=== PATIENT | female | born 1990 | race Caucasian/White ===

== ENCOUNTER 2017-07-28 12:06 | Emergency (ER) | payer SELFPAY ==
[2017-07-28 12:12] VITALS: BP 122/69; BMI 35.5
--- NOTE | 2017-07-28 12:58 | DR.GENAD ---
HPI - PCP Primary Care Physician: NFD - Complaint/Symptoms Chief Complaint Doctors Comments: Patient states that she was incarcirated for three months and had a demise. This occured three weeks ago and she had not seen any physician since being released. She did have a physician while incarcerated to examine and informed her that the baby was . She also reports that she had a left breast mass and was treated with medication and an incision was done. Now the left breast is inverted. She is complaining of lack of appropriate care. Chief Complaint:: PT C/O LEFT BREAST ISSUES FOR THE PAST FEW YEARS AND SHE HAS BEEN IN AND OUT OF GROUP HOME AND THAT HER LEFT BREAST IS RED AND INFLAMED AND INVERTED AND DRAINING".. Self Treatment fo Chief Complaint: 2 YEARS AGO PT HAD AN US DONE, AND PT C/O LEFT AXILLA WITH A KNOT . - Source History Provided: Patient - Mode of Arrival Mode of Arrival: Ambulatory - Timing Onset of Chief Complaint: 07/28/17 PMH - PMH Past Medical History: No Past Surgical History: Yes Surgical History: Ortho Surgery Past Surgical History Comment: FX RIGHT COLLAR BONE WITH SCREWS.. - Family History History of Family Medical Conditions: Yes Family Medical History Comment: FIBROIDS TO BREASTS - Social History Does patient currently use any type of tobacco product: Yes Have you used tobacco products in the last 12 months: Yes Type of Tobacco Use: Cigarettes How many years tobacco product used: 10 Does any household member use tobacco: No Alcohol Use: None Do you use any recreational Drugs:: No Lives With: Family Lives Where: Home - infectious screening In the last 2 months have you had wt loss of >10#?: NO Have you had fever, night sweats or hemotysis?: No Have you traveled outside the country in the last 6 months?: No Isolation: Standard ROS - Review of Systems Eyes: No Symptoms Reported ENTM: No Symptoms Reported Respiratoy: No Symptoms Reported Cardiovascular: No Symptoms Reported Gastrointestinal/Abdominal: No Symptoms Reported Genitourinary: No Symptoms Reported Neurological: No Symptoms Reported Musculoskeletal: No Symptoms Reported Integumentary: No Symptoms Reported, Other (s/p mastitis probably treated with antibiotics and I&D) Hematologic/Lymphatic: No Symptoms Reported Endocrine: No Symptoms Reported Psychiatric: No Symptoms Reported All Other Systems: Reviewed and Negative PE - Vital Signs Vitals: Temperature 97.8 F Pulse Rate 104 Respiratory Rate 18 Blood Pressure 122/69 O2 Sat by Pulse Oximetry 100 - General General Appearance: Alert, In No Apparent Distress - Head Head Exam: Normal Inspection, Atraumatic - Eyes Eye exam: Normal Appearance, PERRL, EOMI - ENT ENT Exam: Normal Exam External Ear Exam: Normal External Inspection Nose Exam: Normal Nose Exam Mouth Exam: Normal Inspection Throat Exam: Normal Inspection - Neck Neck Exam: Normal Inspection - Respiratory Respiratory Exam: Normal Lung Sounds Bilat, Other (left areola s/p I&D and w/o erythema or tenderness, scar formation) - Extremities Extremities Exam: Normal Inspection, Other (c/o demise of three weeks duration) - Back Back Exam: Normal Inspection - Neurologic Neurological Exam: Alert, Oriented X3, CN II-XII Intact - Skin Skin Exam: Warm, Dry, Intact - Diagnosis Discharge Problem: History of demise, not currently Periductal mastitis Qualifiers: Laterality: left Qualified Code(s): 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
== END 2017-07-28 13:18 | disposition home or self-care (01) ==
LOC: ER 12:18
DX: N60.42 Mammary duct ectasia of left breast (principal)
CPT/HCPCS: 99281; 99282

== ENCOUNTER 2021-01-03 06:30 | Inpatient (IN) ==
[2021-01-03] MEDS ORDERED: PITOCIN ONE ×2 (07:17→17:15)
[2021-01-03] MEDS ORDERED: D5 1/2 NS 1L W PITOCIN 20 UNITS/L 20 UNITS/1,000 ML BAG IV ONE ×2 (07:17→17:11)
[2021-01-03] MEDS ORDERED: D5LR 1L W PITOCIN 10 UNITS/L 10 UNITS/1,000 ML BAG IV ONE (07:17)
[2021-01-03] MEDS ORDERED: BETADINE SOLN ONE (07:17)
[2021-01-03] MEDS ORDERED: D5 1/2 NS 1000 ML 1,000 ML IV ONE ×2 (07:17→08:26)
[2021-01-03] MEDS ORDERED: ANCEF 1 GRAM IV PREMIX* 1 G/50 ML BAG IV ONE ×2 (07:18→13:54)
[2021-01-03] MEDS ORDERED: D5LR 1L W PITOCIN 10 UNITS/L 10 UNITS/1,000 ML BAG IV PRN (07:44)
[2021-01-03] MEDS ORDERED: STADOL INJ IVP PRN (07:44)
[2021-01-03] MEDS ORDERED: PITOCIN IVP ONE (07:44)
[2021-01-03] MEDS: D5 1/2 NS 1000 ML 1,000 ML IV SCH ×2 (07:44→15:45)
[2021-01-03] MEDS ORDERED: NUBAIN INJ 200 MG VIAL MULTIDOSE IVP PRN (07:44)
[2021-01-03] MEDS ORDERED: PHENERGAN INJ 25 MG IM PRN ×2 (07:44→18:37)
[2021-01-03] MEDS ORDERED: MORPHINE SULFATE INJ 2 MG INJ IVP PRN (07:44)
[2021-01-03] MEDS ORDERED: REGLAN INJ 10 MG VIAL IVP PRN ×2 (07:44→19:25)
[2021-01-03] MEDS: ANCEF VIAL 1 GRAM IVP SCH ×2 (08:00→14:00)
[2021-01-03 08:11] LABS: BASOPHILS # (AUTO) 0.1 X10^3/uL (0.0-0.1); BASOPHILS % (AUTO) 0.5 % (0.2-1.0); EOSINOPHILS # (AUTO) 0.1 x10^3/uL (0.0-0.2); EOSINOPHILS % (AUTO) 1.2 % (0.9-2.9); HEMATOCRIT 36.4 % (36.0-47.0); HEMOGLOBIN 11.9 g/dL (12.0-16.0); MEAN CORPUSCULAR HGB CONC 32.7 g/dL (33.0-35.0); MEAN CORPUSCULAR VOLUME 97.6 fL (80.0-100.0); MEAN PLATELET VOLUME 7.3 fL (7.4-11.0); MONOCYTES # (AUTO) 0.8 x10^3/uL (0.3-0.8); MONOCYTES % (AUTO) 6.2 % (0.0-13.0); NEUTROPHILS # (AUTO) 9.3 x10^3/uL (2.2-4.8); NEUTROPHILS % (AUTO) 76.1 % (42.0-75.0); PLATELET COUNT 266 X10^3/uL (150.0-450.0); RED BLOOD COUNT 3.73 X10^6/uL (3.5-5.4); RED CELL DISTRIBUTION WIDTH 13.2 % (11.6-16.5); WHITE BLOOD COUNT 12.2 X10^3/uL (3.6-10.0)
[2021-01-03 08:25] LABS: ALANINE AMINOTRANSFERASE 28 Units/L (12-78); ALBUMIN 2.5 g/dL (3.4-5.0); ALKALINE PHOSPHATASE 171 Units/L (46-116); ASPARTATE AMINO TRANSFERASE 20 Units/L (15-37); BLOOD UREA NITROGEN 9 mg/dL (7-18); CALCIUM 8.6 mg/dL (8.5-10.1); CARBON DIOXIDE 23.3 mmol/L (21-32); CHLORIDE 104 mmol/L (98-107); COR CA(FOR HYPOALB) 9.8 mg/dL (8.5-10.1); COR NA(FOR HYPERGLY) 138 mmol/L (136-145); CREATININE 0.77 mg/dL (0.55-1.02); SODIUM 137 mmol/L (136-145); TOTAL PROTEIN 6.7 g/dL (6.4-8.2); eGFR NON BLACK RACES > 60 (>60)
[2021-01-03 08:32] LABS: BILIRUBIN,URINE NEGATIVE (NEGATIVE); BLOOD/HEMOGLOBIN,URINE NEGATIVE (NEGATIVE); GLUCOSE, URINE NEGATIVE (NEGATIVE); KETONES,URINE NEGATIVE (NEGATIVE); LEUKOCYTE ESTERASE ,URINE NEGATIVE (NEGATIVE); NITRITES,URINE NEGATIVE (NEGATIVE); PROTEIN,URINE NEGATIVE (NEGATIVE); UROBILINOGEN,URINE NORMAL (NORMAL)
[2021-01-03 08:34] LABS: APPEARANCE,URINE CLEAR (CLEAR); COLOR,URINE YELLOW (YELLOW)
--- NOTE | 2021-01-03 08:39 | DR.OB ---
OB Quick Note - Assessment/Plan Assessment/Plan: L&D 01/03/21 at 8:20am S-No complaint. O-Afebrile,VSS YZW=320 with good LTV, +accel, no decel. CTX=none CVX=1-2cm/50%/-1/VTX AROM with clear fluid. IUPC and FSE placed. A-IUP at 39 5/7 weeks for induction Unknown GBS Rh- Morbid Obesity P-Begin pitocin induction IV ABX in labor for unknown GBS Anticipate
[2021-01-03] MEDS: VSL#3 PO SCH ×2 (09:05→11:18)
[2021-01-03] MEDS ORDERED: FENTANYL INJ 100 mcg ONE (10:55)
[2021-01-03] MEDS ORDERED: NAROPIN EPIDURAL 0.2% 100 ML ONE (10:56)
[2021-01-03] MEDS ORDERED: LR 1000 ML IV 1,000 ML IV ONE ×2 (10:59→17:11)
[2021-01-03] MEDS: STADOL INJ ONE ×2 (11:00→11:22)
--- NOTE | 2021-01-03 13:30 | DR.OB ---
OB Quick Note - Assessment/Plan Assessment/Plan: L&D 01/03/21 at 1:10pm Pitocin=20mu/min Ancef S-No complaint. s/p epidural. O-Afebrile,VSS RCM=234 with good LTV, +accel, no decel. CTX=q 1 1/2 min., about 50mmHg CVX=3cm/50%/-1/VTX A-IUP at 39 5/7 weeks for induction +GBS Rh- P-Cont. pitocin induction/ABX in labor Anticipate
[2021-01-03] MEDS ORDERED: ANCEF 1 GRAM IV PREMIX* 2 G/100 ML BAG IV ONE (17:01)
--- NOTE | 2021-01-03 17:04 | DR.OB ---
OB Quick Note - Assessment/Plan Assessment/Plan: L&D 01/03/21 at 5:00pm Pitocin=20mu/min. Ancef S-No complaint. O-Afebrile,VSS AWJ=643 with good LTV, +accel, no decel. CTX=q 1 1/2 min., about 55mmHg CVX=3cm/50%/-1 (no change) A-IUP at 39 5/7 weeks with failure to dilate P-To C/S.
[2021-01-03] MEDS ORDERED: DILAUDID INJ ONE (17:11)
[2021-01-03] MEDS ORDERED: REGLAN INJ 10 MG VIAL ONE (17:15)
[2021-01-03] MEDS ORDERED: ZOFRAN INJ 4 MG VIAL ONE (17:15)
[2021-01-03] MEDS ORDERED: XYLOCAINE 2 % (PLAIN) ONE (17:15)
[2021-01-03] MEDS ORDERED: ADRENALINE CHL INJ ONE (17:15)
[2021-01-03] MEDS ORDERED: EPHEDRINE SULFATE INJ ONE (17:15)
[2021-01-03] MEDS ORDERED: XYLOCAINE 2% and EPINEPHRINE 1:100,000 ONE (17:15)
[2021-01-03] MEDS ORDERED: BENADRYL INJ 50 MG VIAL IVP PRN ×2 (18:37→19:25)
[2021-01-03] MEDS ORDERED: DILAUDID INJ IVP PRN (18:37)
[2021-01-03] MEDS ORDERED: ZOFRAN INJ 4 MG VIAL IVP PRN ×2 (18:37→19:25)
[2021-01-03] MEDS ORDERED: BENADRYL INJ 50 MG VIAL ONE (19:22)
[2021-01-03] MEDS ORDERED: NARCAN INJ IVP PRN (19:25)
[2021-01-03] MEDS ORDERED: ADACEL or BOOSTRIX TDaP VACCINE IM ONE (19:25)
[2021-01-03] MEDS ORDERED: HYPERRHO S/D (or RHOGAM) IM PRN (19:25)
[2021-01-03] MEDS ORDERED: MYLICON TAB 80 MG CHEW PO PRN (19:25)
[2021-01-03] MEDS ORDERED: TORADOL 30 MG VIAL IVP PRN (19:25)
[2021-01-03] MEDS ORDERED: PERCOCET TAB 5/325 MG PO PRN (19:25)
[2021-01-03] MEDS ORDERED: D5 1/2 NS 1000 ML 1,000 ML with PITOCIN 20 UNITS IV SCH ×2 (19:25)
[2021-01-04 05:05] LABS: HEMATOCRIT 32.5 % (36.0-47.0)
[2021-01-04] MEDS ORDERED: PERCOCET TAB 5/325 MG PO PRN (07:30)
[2021-01-04] MEDS: VSL#3 PO SCH (08:00)
[2021-01-04] MEDS: MOTRIN TAB 800 MG PO PRN ×2 (08:01→17:20)
[2021-01-04] MEDS: COLACE CAP 100 MG PO SCH ×2 (09:09→21:25)
[2021-01-04] MEDS: PRENATAL PLUS PO SCH (09:09)
[2021-01-04] MEDS: BACTROBAN TOPICAL OINT TOP SCH ×2 (14:30→21:12)
[2021-01-05] MEDS: BACTROBAN TOPICAL OINT TOP SCH (05:35)
[2021-01-05 08:23] VITALS: BP 116/72
[2021-01-05] MEDS: PRENATAL PLUS PO SCH (09:18)
[2021-01-05] MEDS: COLACE CAP 100 MG PO SCH (09:18)
[2021-01-05] MEDS: VSL#3 PO SCH (09:19)
== END 2021-01-05 10:00 | disposition home or self-care (01) | DRG 788 ==
LOC: LD 07:04 → MED/SURG 18:34
PROVIDERS: ADMIT Specialist; ATTEND Specialist